=== PATIENT | female | born 1980 | race Caucasian/White ===

== ENCOUNTER 2017-11-07 10:36 | Emergency (ER) | payer OTHER ==
[2017-11-07 11:26] LABS: Absolute Monocytes 0.5 K/uL (0.1-1.3); Basophils % 0.4 % (0-1.3); Eosinophils % 2.1 % (0-4.4); Hematocrit 40.6 % (36.0-45.0); MCH 28.1 pg (27.0-35.0); MCV 83.3 fL (80-100); MPV 7.6 fL (7.6-11.3); Monocytes % 6.2 % (3.3-12.3); RBC Red Blood Cell Count 4.88 M/uL (3.86-4.86)
[2017-11-07 11:43] LABS: Bicarbonate 26 mEq/L (21-31); Glucose Level 101 mg/dL (65-120); Lipase 23 U/L (22-51); Potassium 3.6 mEq/L (3.6-5.0); Sodium Level 137 mEq/L (135-145)
[2017-11-07 11:49] LABS: ALT/SGPT 14 IU/L (10-60); AST/SGOT 17 IU/L (10-42); Alkaline Phosphatase 55 IU/L (42-121); BUN Blood Urea Nitrogen 11 mg/dL (6-20); Bilirubin Direct 0.1 mg/dL (0-0.2); Bilirubin Total 0.5 mg/dL (0.3-1.2); Protein, Total 7.6 g/dL (6.0-8.3)
[2017-11-07 11:51] LABS: Urine Blood TRACE (NEG); Urine Glucose NEGATIVE (NEG); Urine Protein TRACE (NEG); Urine Specific Gravity 1.025 (1.005-1.030)
--- NOTE | 2017-11-07 12:31 | RAD REPORT ---
EXAM DESCRIPTION: CTAbdomen Pelvis W Contrast - 11/07/2017 12:24 pm CLINICAL HISTORY: Abdominal pain. COMPARISON: None. TECHNIQUE: Biphasic CT imaging of the abdomen and pelvis was performed with 100 ml non-ionic IV cont rast. All CT scans are performed using dose optimization technique as appropriate and may include automated exposure control or mA/KV adjustment according to patient size. FINDINGS: The lung bases are clear. The liver, spleen, pancreas, adrenal glands and kidneys are within normal limits. No bowel obstruction, free air, free fluid or abscess. Small fat containing umbilical hernia. The sohan endix is normal. No evidence of significant lymphadenopathy. No suspicious bony findings. IMPRESSION: No acute intra-abdominal or pelvic finding.
[2017-11-07] MEDS ORDERED: PROMETHAZINE 25 MG/ML VIAL ONE (12:38)
--- NOTE | 2017-11-07 12:48 | ER ---
Nurse's Notes [facility] Name: Susan Luna Age: 37 yrs Sex: Female : 1980 Arrival Date: 11/07/2017 Time: 10:37 Bed 13 Private MD: Diagnosis: Vomiting;Abdominal and pelvic pain Presentation: 11/07 10:52 Presenting complaint: Patient states: I feel like I'm about to pass out and I can't ph stop throwing up. I am throwing up blood." Pt reports N/V and L sided abdominal pain that began yesterday, denies fever or diarrhea. Transition of care: patient was not received from another setting of care. Onset of symptoms was November 07, 2017. Care prior to arrival: None. 10:52 Method Of Arrival: Ambulatory ph 10:52 Acuity: BOAZ 3 ph Triage Assessment: 11:00 General: Appears in no apparent distress. uncomfortable, Behavior is calm, cooperative, hj appropriate for age. Pain: Complains of pain in right lower quadrant. GI: Reports lower abdominal pain, nausea, vomiting. 11:19 GI: Reports. 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 - Social history:: Smoking status: Patient/guardian denies using tobacco. Screenin:00 Abuse screen: Denies threats or abuse. Denies injuries from another. Nutritional hj screening: No deficits noted. Tuberculosis screening: No symptoms or risk factors identified. Fall Risk None identified. Assessment: 11:00 GI: Abdomen is non-distended. hj 11:00 General: Appears in no apparent distress. uncomfortable, Behavior is calm, cooperative, hj appropriate for age. Pain: Complains of pain in right lower quadrant. Neuro: Level of Consciousness is awake, alert, obeys commands, Oriented to person, place, time, situation, Appropriate for age. Cardiovascular: Capillary refill < 3 seconds Patient's skin is warm and dry. Respiratory: Airway is patent Respiratory effort is even, unlabored, Respiratory pattern is regular, symmetrical. : No signs and/or symptoms were reported regarding the genitourinary system. EENT: No signs and/or symptoms were reported regarding the EENT system. Derm: No signs and/or symptoms reported regarding the dermatologic system. Musculoskeletal: No signs and/or symptoms reported regarding the musculoskeletal system. Vital Signs: 10:54 BP 116 / 75; Pulse 82; Resp 18; Temp 98.4(O); Pulse Ox 100% on R/A; Weight 78.93 kg; ph Height 5 ft. 4 in. (162.56 cm); Pain 7/10; 13:21 BP 120 / 78; Pulse 82; Resp 18; Pulse Ox 100% on R/A; hj 10:54 Body Mass Index 29.87 (78.93 kg, 162.56 cm) ph ED Course: 10:37 Patient arrived in ED. sb2 10:53 Triage completed. ph 10:55 Arm band placed on. ph 10:56 Ravindra Hager RN is Primary Nurse. hj 10:57 Brandon Rai PA is PHCP. jr8 10:57 Lencho Butler MD is Attending Physician. jr8 11:01 Patient has correct armband on for positive identification. Placed in gown. Bed in low hj position. Call light in reach. Side rails up X 1. 11:11 Urine collected: clean catch specimen, clear. 5 11:15 Initial lab(s) drawn, by me, sent to lab. Inserted saline lock: 22 gauge in right hj antecubital area, using aseptic technique. Blood collected. 12:25 CT Abd/Pelvis - W/Contrast In Process Unspecified. EDMS 12:48 Pio Bonilla MD is Referral Physician. jr8 13:20 No provider procedures requiring assistance completed. IV discontinued, intact, hj bleeding controlled, No redness/swelling at site. Pressure dressing applied. Administered Medications: 12:35 Drug: Phenergan 12.5 mg Route: IVP; Site: right antecubital; hj 13:24 Follow up: Response: No adverse reaction hj Outcome: 12:48 Discharge ordered by . jr8 13:21 Discharged to home ambulatory, with family. hj 13:21 Condition: stable 13:21 Discharge instructions given to patient, family, Instructed on discharge instructions, follow up and referral plans. medication usage, Demonstrated understanding of instructions, follow-up care, medications, Prescriptions given X 2. 13:23 Patient left the ED. Signatures: Dispatcher [employer] EDMS Brandon Rai PA PA jr8 Sona Kay RN RN Ravindra Hager RN RN Pat Stapleton [facility] Emily Herrera 2 Corrections: (The following items were deleted from the chart) 11:20 11:00 General: Appears in no apparent distress. uncomfortable, Behavior is calm, hj cooperative, appropriate for age, 11:20 11:00 Pain: Complains of pain in left lower quadrant vinicius colvin
--- NOTE | 2017-11-07 12:48 | EDPHYS ---
Physician Documentation [facility] Name: Susan Luna Age: 37 yrs Sex: Female : 1980 Arrival Date: 11/07/2017 Time: 10:37 Bed 13 Private MD: ED Physician Lencho Butler HPI: 11/07 12:14 This 37 yrs old Female presents to ER via Ambulatory with complaints of jr8 Vomiting, Weakness. 12:14 The patient presents to the emergency department with nausea, vomiting. Onset: The jr8 symptoms/episode began/occurred acutely, yesterday. Possible causes: unknown. The symptoms are aggravated by nothing. The symptoms are alleviated by nothing. Associated signs and symptoms: Pertinent positives: GI bleeding. Severity of symptoms: At their worst the symptoms were mild in the emergency department the symptoms are unchanged. The patient has not experienced similar symptoms in the past. The patient has not recently seen a physician. denies excessive alcohol or NSAID use. Denies frequent reflux problems. 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 - Social history:: Smoking status: Patient/guardian denies using tobacco. ROS: 12:15 Eyes: Negative for injury, pain, redness, and discharge, ENT: Negative for injury, jr8 pain, and discharge, Neck: Negative for injury, pain, and swelling, Cardiovascular: Negative for chest pain, palpitations, and edema, Respiratory: Negative for shortness of breath, cough, wheezing, and pleuritic chest pain, Back: Negative for injury and pain, MS/Extremity: Negative for injury and deformity, Skin: Negative for injury, rash, and discoloration, Neuro: Negative for headache, weakness, numbness, tingling, and seizure. 12:15 Abdomen/GI: Positive for abdominal pain, nausea and vomiting, hematemesis, Negative for diarrhea, constipation, abdominal cramps, abdominal distension, anorexia, dysphagia, black/tarry stool, rectal pain, rectal bleeding, bowel incontinence, flatulence. Exam: 12:15 ENT: Nares patent. No nasal discharge, no septal abnormalities noted. Tympanic jr8 membranes are normal and external auditory canals are clear. Oropharynx with no redness, swelling, or masses, exudates, or evidence of obstruction, uvula midline. Mucous membranes moist. Neck: Trachea midline, no thyromegaly or masses palpated, and no cervical lymphadenopathy. Supple, full range of motion without nuchal rigidity, or vertebral point tenderness. No Meningismus. Cardiovascular: Regular rate and rhythm with a normal S1 and S2. No gallops, murmurs, or rubs. Normal PMI, no JVD. No pulse deficits. Respiratory: Lungs have equal breath sounds bilaterally, clear to auscultation and percussion. No rales, rhonchi or wheezes noted. No increased work of breathing, no retractions or nasal flaring. Back: No spinal tenderness. No costovertebral tenderness. Full range of motion. Skin: Warm, dry with normal turgor. Normal color with no rashes, no lesions, and no evidence of cellulitis. MS/ Extremity: Pulses equal, no cyanosis. Neurovascular intact. Full, normal range of motion. Neuro: Awake and alert, GCS 15, oriented to person, place, time, and situation. Cranial nerves II-XII grossly intact. Motor strength 5/5 in all extremities. Sensory grossly intact. Cerebellar exam normal. Normal gait. 12:15 Abdomen/GI: Inspection: abdomen appears normal, Bowel sounds: active, all quadrants, Palpation: soft, in all quadrants, mild abdominal tenderness, in the right lower quadrant, mass, is not appreciated, rebound tenderness, is not appreciated, voluntary guarding, is not appreciated, involuntary guarding, is not appreciated, no appreciated organomegaly, Indicators: McBurney's point is not tender, Villegas's sign is negative, Rovsing's sign is negative, Liver: no appreciated palpable abnormalities, tenderness, is not appreciated. Vital Signs: 10:54 BP 116 / 75; Pulse 82; Resp 18; Temp 98.4(O); Pulse Ox 100% on R/A; Weight 78.93 kg; ph Height 5 ft. 4 in. (162.56 cm); Pain 7/10; 13:21 BP 120 / 78; Pulse 82; Resp 18; Pulse Ox 100% on R/A; hj 10:54 Body Mass Index 29.87 (78.93 kg, 162.56 cm) ph MDM: 10:57 Patient medically screened. jr8 12:43 Data reviewed: vital signs, nurses notes, lab test result(s), radiologic studies, CT jr8 scan, and as a result, I will discharge patient. Data interpreted: Pulse oximetry: on room air is 100 %. Interpretation: normal. 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 ED course: Patient without hematemesis while in ED. Vitals WNL. No acute distress. Non anemic. No acute findings on CT. Explained to patient that she needs to f/u with GI for endoscopy. Patient understood and would f/u. If she were to worsen to come back for further evaluation . 11/07 10:58 Order name: Basic Metabolic Panel; Complete Time: 12: 11/07 10:58 Order name: CBC with Diff; Complete Time: 11:35 11/07 10:58 Order name: Creatinine for Radiology; Complete Time: 12:11/07 10:58 Order name: Hepatic Function; Complete Time: 12:11/07 10:58 Order name: Lipase; Complete Time: 12:11/07 11:13 Order name: Urine Dipstick--Ancillary (enter results); Complete Time: 12:00 [facility] 11/07 10:58 Order name: Urine Test (obtain specimen); Complete Time: 11:12 11/07 10:58 Order name: IV Saline Lock; Complete Time: 11:11/07 10:58 Order name: Labs collected and sent; Complete Time: :11/07 10:58 Order name: Urine Dipstick-Ancillary (obtain specimen); Complete Time: 11:11/07 11:13 Order name: Urine --Ancillary (enter results); Complete Time: 12:00 [facility] 11/07 12:01 Order name: CT Abd/Pelvis - W/Contrast; Complete Time: 12:41 Administered Medications: 12:35 Drug: Phenergan 12.5 mg Route: IVP; Site: right antecubital; 13:24 Follow up: Response: No adverse reaction Disposition: 11/07/17 12:48 Discharged to Home. Impression: Vomiting, Abdominal and pelvic pain. - Condition is Stable. - Discharge Instructions: Abdominal Pain, Adult, Nausea and Vomiting. - Prescriptions for pantoprazole 40 mg Oral tablet,delayed release (DR/EC) - take 1 tablet by ORAL route once daily; 30 tablet. promethazine 25 mg Oral Tablet - take 1 tablet by ORAL route every 6 hours As needed; 20 tablet. - Medication Reconciliation Form, Thank You Letter, Antibiotic Education, Prescription Opioid Use form. - Follow up: Pio Bonilla MD; When: 2 - 3 days; Reason: Recheck today's complaints, Continuance of care, Re-evaluation by your physician. - Problem is new. - Symptoms have improved. Addendum: 11/09/2017 07:30 Co-signature as Attending Physician, Lencho Butler MD I agree with the assessment and w a plan of care. Signatures: Dispatcher [employer] EDMS Brandon Rai PA PA jr8 Sona Kay RN RN Ravindra Hager RN Lencho Mariscal MD MD ms
== END 2017-11-07 13:23 | disposition home or self-care (01) ==
LOC: ER 10:36
DX: R10.2 Pelvic and perineal pain (principal)
CPT/HCPCS: 36415; 74177; 80048; 80076; 81003; 81025; 83690; 85025; 96374; 99284; J2550